=== PATIENT | male | born 1955 | race Caucasian/White ===

== ENCOUNTER 2020-06-15 10:25 | Day surgery (SDC) | payer OTHER ==
[~2020-06-15] VITALS: Ht 165.1 cm; Wt 79.9 kg
[2020-06-15] MEDS ORDERED: ASPI81CH PO (10:41)
[2020-06-15] MEDS ORDERED: HYDCHL25 PO (10:41)
[2020-06-15] MEDS ORDERED: PRAV20 PO (10:42)
[2020-06-15] MEDS ORDERED: SILD50TA PO (10:42)
[2020-06-15] MEDS ORDERED: LISI20 PO (10:42)
[2020-06-15] MEDS ORDERED: GABA100 PO (10:43)
== END 2020-06-15 11:24 | disposition home or self-care (01) ==
LOC: ORSCSDS 10:25
PROVIDERS: Anesthesiology
PROC: 3E0R33Z Introduction of Anti-inflammatory into Spinal Canal, Percutaneous Approach (ICD-10-PCS; principal; 2020-06-15 16:00)
DX: M54.16 Radiculopathy, lumbar region (principal); I10 Essential (primary) hypertension; Z79.899 Other long term (current) drug therapy; Z87.891 Personal history of nicotine dependence
CPT/HCPCS: J1040

== ENCOUNTER 2023-08-14 11:15 | Emergency (ER) | payer OTHER ==
[~2023-08-14] VITALS: Ht 160 cm; Wt 81.7 kg
[~2023-08-14 11:15] MED LIST: ASPI81CH PO; GABA100 PO; HYDCHL25 PO; LISI20 PO; PRAV20 PO; SILD50TA PO
[2023-08-14 13:06] LABS: BASOPHILS ABSOLUTE AUTO 0.05 K/mm3 (0.00-0.23); BASOPHILS PERCENT AUTO 0 % (0-2); EOSINOPHILS ABSOLUTE AUTO 0.12 K/mm3 (0.00-0.68); EOSINOPHILS PERCENT AUTO 1 % (0-6); Hematocrit 41.4 % (37.0-53.0); Hemoglobin 14.3 g/dL (13.5-17.5); IMMATURE GRAN ABSOLUTE AUTO 0.09 K/mm3 (0.00-0.10); IMMATURE GRAN PERCENT AUTO 1 % (0-1); LYMPHOCYTES ABSOLUTE AUTO 1.29 K/mm3 (0.84-5.20); LYMPHOCYTES PERCENT AUTO 9 % (21-46); MONOCYTES ABSOLUTE AUTO 1.07 K/mm3 (0.16-1.47); MONOCYTES PERCENT AUTO 8 % (4-13); Mean Corpuscular HGB Conc 34.5 g/dL (31.5-36.5); Mean Corpuscular Volume 87 fL (80-100); Mean Platelet Volume 8.7 fL (9.1-12.4); NEUTROPHILS ABSOLUTE AUTO 11.22 K/mm3 (1.96-9.15); NEUTROPHILS PERCENT AUTO 81 % (41-73); Platelet Count 243 K/mm3 (150-400); RDW Standard Deviation 41.4 fL (35.1-46.3); Red Blood Cell Count 4.76 M/mm3 (4.30-5.90); White Blood Cell Count 13.84 K/mm3 (4.00-11.30)
[2023-08-14 13:30] VITALS: BP 162/96
[2023-08-14 13:33] LABS: Magnesium, Blood 2.4 mg/dL (1.6-2.4)
[2023-08-14 13:34] LABS: Albumin, Blood 3.7 g/dL (3.4-5.0); Bilirubin, Total 0.4 mg/dL (0.1-1.0); Bun/Creatinine Ratio 18.1 (12.0-20.0); Calcium, Blood 8.9 mg/dL (8.5-10.1); Creatinine, Blood 0.94 mg/dL (0.60-1.20); Globulin, Blood 3.6 g/dL (2.2-4.0); Potassium, Blood 4.1 mmol/L (3.5-5.5); Total Protein, Blood 7.3 g/dL (6.4-8.2)
== END 2023-08-14 14:01 | disposition home or self-care (01) ==
LOC: ER 11:15
PROVIDERS: Student in an Organized Health Care Education/Training Program
DX: R56.9 Unspecified convulsions (principal); E87.1 Hypo-osmolality and hyponatremia; Z87.891 Personal history of nicotine dependence; Z79.82 Long term (current) use of aspirin; Z79.899 Other long term (current) drug therapy
CPT/HCPCS: 80053; 82947; 83735; 85025; 99284-25

== ENCOUNTER 2024-02-24 13:32 | Inpatient (IN) | payer OTHER ==
[~2024-02-24] VITALS: Ht 165.1 cm; Wt 85.0 kg
[2024-02-24] VITALS (12 sets, daily range): BP systolic 101–140; BP diastolic 69–93
[~2024-02-24 13:32] MED LIST changes: -Acetaminophen650 M1 PO; -EZETIMIBE10 M6 PO; -LEVETIRACETAM50014 PO; -METO25ER PO; -NITR.4SL SL; -ROSUVASTATIN CA40 MG PO; -TICA90TA PO
[2024-02-24] MEDS ORDERED: FentaNYL Citrate 50 MCG/ML 2 ML Injection ONE (13:37)
[2024-02-24] MEDS ORDERED: Midazolam HCl 1MG / ML 2ML Vial ONE (13:38)
[2024-02-24] MEDS ORDERED: NS 1,000 ML IV ONE ×2 (13:38→15:19)
[2024-02-24] MEDS ORDERED: Ticagrelor 90 MG TABLET PO ONE ×2 (13:40→15:30)
[2024-02-24] MEDS ORDERED: Heparin Sodium 5000 Units/ML 1ML MDV IV ONE (13:40)
[2024-02-24] MEDS ORDERED: Phenylephrine HCl 100 MCG/ML-NS 10MLSYR (1MG/10ML) ONE (13:43)
[2024-02-24] MEDS ORDERED: Atropine Sulfate 0.1 MG/ML 10ML SYR ONE (13:43)
[2024-02-24] MEDS ORDERED: Ticagrelor 90 MG TABLET ONE (13:48)
[2024-02-24 13:50] LABS: Calcium, Ionized (POC) 1.13 mmol/L (1.10-1.46); Chloride (POC) 105 mmol/L (98-108); Creatinine (POC) 1.1 mg/dL (0.8-1.3); Glucose (ISTAT POC) 140 mg/dL (70-99); Hemoglobin (POC) 15.3 g/dL (13.5-17.5); Potassium (POC) 4.4 mmol/L (3.5-5.5); Sodium (POC) 136 mmol/L (135-148); Total CO2 (POC) 21 mmol/L (21-32)
[2024-02-24] MEDS ORDERED: LEVETIRACETAM50014 PO (13:57)
[2024-02-24 13:58] LABS: BASOPHILS ABSOLUTE AUTO 0.07 K/mm3 (0.00-0.23); BASOPHILS PERCENT AUTO 1 % (0-2); EOSINOPHILS ABSOLUTE AUTO 0.07 K/mm3 (0.00-0.68); EOSINOPHILS PERCENT AUTO 1 % (0-6); Hematocrit 43.7 % (37.0-53.0); IMMATURE GRAN ABSOLUTE AUTO 0.09 K/mm3 (0.00-0.10); IMMATURE GRAN PERCENT AUTO 1 % (0-1); LYMPHOCYTES ABSOLUTE AUTO 1.53 K/mm3 (0.84-5.20); LYMPHOCYTES PERCENT AUTO 13 % (21-46); MONOCYTES ABSOLUTE AUTO 0.81 K/mm3 (0.16-1.47); MONOCYTES PERCENT AUTO 7 % (4-13); Mean Corpuscular HGB 29.9 pg (26.0-34.0); Mean Corpuscular HGB Conc 34.3 g/dL (31.5-36.5); Mean Corpuscular Volume 87 fL (80-100); Mean Platelet Volume 8.3 fL (9.1-12.4); NEUTROPHILS ABSOLUTE AUTO 9.62 K/mm3 (1.96-9.15); NEUTROPHILS PERCENT AUTO 79 % (41-73); Platelet Count 271 K/mm3 (150-400); RDW Coefficient Variation 12.7 % (11.7-14.2); RDW Standard Deviation 40.9 fL (35.1-46.3); Red Blood Cell Count 5.01 M/mm3 (4.30-5.90); White Blood Cell Count 12.19 K/mm3 (4.00-11.30)
[2024-02-24] MEDS ORDERED: EZETIMIBE10 M6 PO (13:58)
[2024-02-24] MEDS ORDERED: ROSUVASTATIN CA40 MG PO (13:59)
[2024-02-24 14:10] LABS: International Normalized Ratio 0.96; Prothrombin Time Results 10.3 Sec (9.7-11.5)
[2024-02-24 14:13] LABS: Albumin, Blood 4.4 g/dL (3.4-5.0); Albumin/Globulin Ratio 1.1 (0.8-1.8); Bilirubin, Total 0.3 mg/dL (0.1-1.0); Calcium, Blood 9.2 mg/dL (8.5-10.1); Potassium, Blood 4.5 mmol/L (3.5-5.5); Total Protein, Blood 8.4 g/dL (6.4-8.2)
[2024-02-24] MEDS ORDERED: Heparin Sodium,Porcine 5,000 UNIT/0.5 ML SDV SC ONE (14:46)
[2024-02-24] MEDS ORDERED: Acetaminophen 325 MG TABLET PO PRN ×2 (14:55→15:30)
[2024-02-24] MEDS ORDERED: Morphine Sulfate 4 MG/1 ML Injection IV PRN (15:00)
[2024-02-24] MEDS ORDERED: NS 250 ML IV ONE (15:19)
[2024-02-24] MEDS ORDERED: Heparin Sodium 1000 Units/ML 10ML MDV ONE (15:19)
[2024-02-24] MEDS ORDERED: NiCARdipine HCL 1,000 MCG/5 ML SYR ONE (15:20)
[2024-02-24] MEDS ORDERED: Nitroglycerin 2 MG/20 ML BTL ONE (15:20)
[2024-02-24] MEDS ORDERED: Acetaminophen/Codeine 300-30 mg PO PRN (15:25)
[2024-02-24] MEDS ORDERED: HydrALAZINE HCl 20 MG / ML 1ML Vial IV PRN ×2 (15:30)
[2024-02-24] MEDS ORDERED: NS 1,000 ML IV SCH (15:30)
[2024-02-24] MEDS ORDERED: Nitroglycerin 0.4 MG SUBL SL PRN (15:30)
[2024-02-24] MEDS ORDERED: Zolpidem Tartrate 5 MG Tab PO PRN (15:35)
[2024-02-24] MEDS ORDERED: Ondansetron HCl 2 MG / ML 2ML Vial IV PRN (15:35)
[2024-02-24] MEDS ORDERED: Gabapentin 100 MG Cap PO PRN (17:10)
--- NOTE | 2024-02-24 17:43 | NUR ---
PT ARRIVAL/SHIFT SUMMARY..... PT ARRIVED TO THE UNIT AT 1530. PT IS A&Ox4 S/P STENT TO THE RCA. PT DENIES ANY CHEST PAIN/PRESSURE N/V OR SOB AT THIS TIME. PT'S VS STABLE. TR BAND TO THE RIGHT WRIST HAS 11MLS OF AIR, NO SWELLING, BLEEDING OR HEMATOMA NOTED TO THE RIGHT WRIST/ARM. ARM BOARD IN IN PLACE TO THE RIGHT ARM. PT'S AT THE BEDSIDE, BOTH PT AND HIS UPDATED ON PT'S CONDITION AND PLAN OF CARE. AT 1730 2MLS OF AIR WAS REMOVED FROM THE TR BAND, THE SITE STARTED BLEEDING, THE AIR WAS RE-INSTILLED AND THE BLEEDING STOPPED. WILL CONTINUE TO MONITOR UNTIL REPORT IS GIVEN TO ONCOMING RN.
--- NOTE | 2024-02-24 19:00 | NUR ---
ASSUMPTION OF CARE PT LYING IN BED, AWAKE, ALERT AND ORIENTED TO ALL. HR NSR 78 AND BP STABLE 120/78. PT DENIES CHEST PAIN, SHORTNESS OF BREATH. PT ADMITS TO DECREASED APPETITE BUT NO NAUSEA. PUNCTURE SITE IN RIGHT WRIST IS CLEAN AND DRY WITH NO SIGN OF HEMATOMA. RIGHT HAND SHOWS INTACT PERFUSION AND SENSATION. NS INFUSING AT 100ML/HR INTO RIGHT AC.
[2024-02-24] MEDS ORDERED: LevETIRAcetam 500 MG Tab PO SCH (21:00)
[2024-02-24] MEDS ORDERED: Rosuvastatin Calcium 10 MG Tab PO SCH (21:00)
[2024-02-24] MEDS ORDERED: Gabapentin 100 MG Cap PO SCH (21:00)
[2024-02-24] MEDS ORDERED: Ticagrelor 90 MG TABLET PO SCH (21:00)
[2024-02-24] MEDS ORDERED: Atorvastatin 40 MG Tab PO SCH (21:00)
--- NOTE | 2024-02-24 23:39 | NUR ---
UPDATE PT TR BAND REMOVED AT 2315. PUNCTURE SITE IS CLEAN AND DRY WITH SMALL DRIED BLOOD ON THE PERIPHERY AND NO SIGN OF HEMATOMA OR DECREASED NEUROVASCULAR INTEGRITY. INITIAL AIR REMOVAL WAS 1730 BY DAY SHIFT NURSE BUT AIR WAS RE INSERTED FOLLOWING BLEEDING. 1ML WAS REMOVED AT 2014 AND THEN IN INCREMENTS OF 1 OR 2ML EVERY 10 TO 20 MIN, FOLLOWING ACCEPTABLE SITE ASSESSMENTS. TEGADERM FRAME BANDAGE WAS PLACED AFTER THE AREA WAS CLEANED.
[2024-02-25] VITALS (13 sets, daily range): BP systolic 122–168; BP diastolic 64–90
[2024-02-25 04:51] LABS: BASOPHILS ABSOLUTE AUTO 0.05 K/mm3 (0.00-0.23); BASOPHILS PERCENT AUTO 1 % (0-2); EOSINOPHILS ABSOLUTE AUTO 0.16 K/mm3 (0.00-0.68); EOSINOPHILS PERCENT AUTO 2 % (0-6); Hemoglobin 13.3 g/dL (13.5-17.5); IMMATURE GRAN ABSOLUTE AUTO 0.05 K/mm3 (0.00-0.10); IMMATURE GRAN PERCENT AUTO 1 % (0-1); LYMPHOCYTES ABSOLUTE AUTO 1.62 K/mm3 (0.84-5.20); LYMPHOCYTES PERCENT AUTO 15 % (21-46); MONOCYTES ABSOLUTE AUTO 1.09 K/mm3 (0.16-1.47); MONOCYTES PERCENT AUTO 10 % (4-13); Mean Corpuscular HGB 29.8 pg (26.0-34.0); Mean Corpuscular HGB Conc 34.1 g/dL (31.5-36.5); Mean Corpuscular Volume 87 fL (80-100); Mean Platelet Volume 8.8 fL (9.1-12.4); NEUTROPHILS ABSOLUTE AUTO 7.95 K/mm3 (1.96-9.15); NEUTROPHILS PERCENT AUTO 73 % (41-73); Platelet Count 229 K/mm3 (150-400); RDW Standard Deviation 41.3 fL (35.1-46.3); Red Blood Cell Count 4.47 M/mm3 (4.30-5.90); White Blood Cell Count 10.92 K/mm3 (4.00-11.30)
[2024-02-25 05:20] LABS: Alanine Aminotransfer (ALT/SGP 55 U/L (12-78); Albumin, Blood 3.4 g/dL (3.4-5.0); Alk Phos 59 U/L (50-136); Anion Gap 13 mmol/L (3-11); Aspartate Aminotrans (AST/SGOT 246 U/L (12-37); Bilirubin, Total 0.4 mg/dL (0.1-1.0); Blood Urea Nitrogen 13 mg/dL (8-24); Bun/Creatinine Ratio 14.1 (12.0-20.0); CHOL/HDL RATIO 2.3; CO2, Blood 20 mmol/L (21-32); Calcium, Blood 8.3 mg/dL (8.5-10.1); Chloride, Blood 110 mmol/L (98-108); Cholesterol 108 mg/dL (50-200); Creatinine, Blood 0.92 mg/dL (0.60-1.20); Globulin, Blood 3.4 g/dL (2.2-4.0); Glomerular Filtration Rate 90 (60-); Glucose, Blood 118 mg/dL (70-99); HDL Cholesterol 46 mg/dL (>39); LDL/HDL RATIO 0.8; Low Density Lipoprotein Chol 36 mg/dL (0-110); Potassium, Blood 3.9 mmol/L (3.5-5.5); Sodium, Blood 139 mmol/L (136-145); Total Protein, Blood 6.8 g/dL (6.4-8.2); Triglycerides 131 mg/dL (30-160); Very Low Density Lipoprot Chol 26 mg/dL (6-32)
--- NOTE | 2024-02-25 06:19 | NUR ---
SHIFT SUMMARY PT LYING IN BED SLEEPING. PT AWAKES TO VOICE AND IS ORIENTED X 4. HR IN 60S/70S, 1ST DEGREE AV BLOCK. BP STABLE 138/90. PT DENIES CHEST PAIN AND SOB. RESPIRATION REGULAR AND WITHOUT EXTRA EFFORT. PT DENIES NAUSEA. RIGHT AC IV SALINE LOCKED. RADIAL ACCESS SITE CLEAN AND DRY W/O EVIDENCE OF HEMATOMA OR NEUROVASCULAR COMPROMISE.
--- NOTE | 2024-02-25 07:43 | NUR ---
BSR AT 0700, PT'S WRIST CHECKED, GOOD PULSES, NO LEAKING. DENIES ANY COMPLAINTS TELLING JOKES.
[2024-02-25] MEDS ORDERED: Aspirin 81 MG Chew PO SCH (09:00)
[2024-02-25] MEDS ORDERED: Metoprolol Succinate 25 MG TABCR PO SCH (09:00)
[2024-02-25] MEDS ORDERED: Lisinopril 20 MG Tab PO SCH (09:00)
[2024-02-25] MEDS ORDERED: Lisinopril 10 MG Tab PO SCH (09:00)
[2024-02-25] MEDS ORDERED: Aspirin 81 MG TabEC PO SCH (09:00)
[2024-02-25] MEDS ORDERED: Ezetimibe 10 MG Tab PO SCH ×2 (09:00)
[2024-02-25] MEDS ORDERED: Acetaminophen650 M1 PO (11:49)
[2024-02-25] MEDS ORDERED: METO25ER PO (11:49)
[2024-02-25] MEDS ORDERED: TICA90TA PO (11:51)
[2024-02-25] MEDS ORDERED: NITR.4SL SL (11:52)
--- NOTE | 2024-02-25 12:58 | NUR ---
JALEN AND HIS WERE GIVEN DISCHARGE INSTRUCTIONS, QUESTIONS ASKED AND ANSWERED. MEDICATIONS TO [facility] WITH COUPON FOR ONE MONTH OF [place]. FOLLOW UP WITH CARDIOLOGY HERE ON THE AND HIS OWN PCP ON THE . PT UP AND AMBULATES ALL THE WAY TO THE CAR WITH NO CHEST PAIN OR TIGHTNESS, NO FEELING OF DISCOMFORT. AT HIS SIDE.
== END 2024-02-25 12:46 | disposition home or self-care (01) | DRG 322 ==
LOC: ER 13:32 → ICUE 13:48
PROVIDERS: Emergency Medicine; ADMIT Internal Medicine
PROC: 027035Z Dilation of Coronary Artery, One Artery with Two Drug-eluting Intraluminal Devices, Percutaneous Approach (ICD-10-PCS; principal; 2024-02-24)
PROC: B2111ZZ Fluoroscopy of Multiple Coronary Arteries using Low Osmolar Contrast (ICD-10-PCS; 2024-02-24)
PROC: 4A023N7 Measurement of Cardiac Sampling and Pressure, Left Heart, Percutaneous Approach (ICD-10-PCS; 2024-02-24)
DX: I21.19 ST elevation (STEMI) myocardial infarction involving other coronary artery of inferior wall (principal); G40.909 Epilepsy, unspecified, not intractable, without status epilepticus; I10 Essential (primary) hypertension; I25.10 Atherosclerotic heart disease of native coronary artery without angina pectoris; E78.5 Hyperlipidemia, unspecified; I73.9 Peripheral vascular disease, unspecified; Z66 Do not resuscitate; G89.4 Chronic pain syndrome; Z87.891 Personal history of nicotine dependence; Z79.82 Long term (current) use of aspirin; Z79.899 Other long term (current) drug therapy; Z79.811 Long term (current) use of aromatase inhibitors; Z86.718 Personal history of other venous thrombosis and embolism; Z85.46 Personal history of malignant neoplasm of prostate; Z92.3 Personal history of irradiation; Z98.890 Other specified postprocedural states
CPT/HCPCS: 36415; 71045; 76937; 80047; 80053; 80061; 84484; 85014; 85025; 85347; 85610; 85730; 92953; 93005; 93010; 93306; 93454; 96374-59; 99152; 99153; 99285-25; A9270; C1725; C1769; C1874; C1887; C1894; C9606; J0461; J1644; J2250; J2371; J3010; J7030; J7050; Q9967

== ENCOUNTER → 2024-02-24 | Outpatient (CLI) | payer OTHER ==
[~2024-02-24] MED LIST changes: +Acetaminophen650 M1 PO; +EZETIMIBE10 M6 PO; +LEVETIRACETAM50014 PO; +METO25ER PO; +NITR.4SL SL; +ROSUVASTATIN CA40 MG PO; +TICA90TA PO
[2024-02-24 13:26] LABS: BASOPHILS ABSOLUTE AUTO 0.07 K/mm3 (0.00-0.23); BASOPHILS PERCENT AUTO 1 % (0-2); EOSINOPHILS ABSOLUTE AUTO 0.11 K/mm3 (0.00-0.68); EOSINOPHILS PERCENT AUTO 1 % (0-6); Hematocrit 42.2 % (37.0-53.0); Hemoglobin 14.4 g/dL (13.5-17.5); IMMATURE GRAN PERCENT AUTO 1 % (0-1); LYMPHOCYTES PERCENT AUTO 14 % (21-46); MONOCYTES ABSOLUTE AUTO 0.87 K/mm3 (0.16-1.47); MONOCYTES PERCENT AUTO 8 % (4-13); Mean Corpuscular HGB 29.9 pg (26.0-34.0); Mean Corpuscular HGB Conc 34.1 g/dL (31.5-36.5); Mean Corpuscular Volume 88 fL (80-100); Mean Platelet Volume 8.6 fL (9.1-12.4); NEUTROPHILS ABSOLUTE AUTO 8.92 K/mm3 (1.96-9.15); NEUTROPHILS PERCENT AUTO 76 % (41-73); Platelet Count 257 K/mm3 (150-400); RDW Coefficient Variation 12.9 % (11.7-14.2); RDW Standard Deviation 40.8 fL (35.1-46.3); Red Blood Cell Count 4.82 M/mm3 (4.30-5.90); White Blood Cell Count 11.67 K/mm3 (4.00-11.30)
[2024-02-24 13:45] LABS: Albumin, Blood 4.1 g/dL (3.4-5.0); Bilirubin, Total 0.3 mg/dL (0.1-1.0); Bun/Creatinine Ratio 12.3 (12.0-20.0); Calcium, Blood 9.2 mg/dL (8.5-10.1); Creatinine, Blood 1.22 mg/dL (0.60-1.20); Globulin, Blood 4.1 g/dL (2.2-4.0); Potassium, Blood 4.6 mmol/L (3.5-5.5); Total Protein, Blood 8.2 g/dL (6.4-8.2)
== END | disposition home or self-care (01) ==
LOC: LAB SHORT 13:21 → LAB 13:21
PROVIDERS: Chiropractor
DX: R07.89 Other chest pain (principal)
CPT/HCPCS: 80053; 84484; 85025

== ENCOUNTER 2025-05-19 06:05 | Inpatient (IN) | payer OTHER ==
[2025-05-19] VITALS (15 sets, daily range): BP systolic 97–150; BP diastolic 50–81
[~2025-05-19] VITALS: Ht 160 cm; Wt 88.9 kg
[~2025-05-19 06:05] MED LIST changes: +Acetaminophen650 M1 PO; +EFFIENT10 MG PO; +EZETIMIBE10 M6 PO; -GABA100 PO; +GABA300 PO; +LEVETIRACETAM50014 PO; +METO25ER PO; +NITR.4SL SL; +ROSUVASTATIN CA40 MG PO; +TICA90TA PO
[2025-05-19] MEDS ORDERED: Tranexamic Acid 100 ML IV SCH (06:20)
[2025-05-19] MEDS ORDERED: CeFAZolin Sodium 2,000 MG in NS 100 ML IV SCH ×2 (06:20→16:00)
[2025-05-19] MEDS ORDERED: Chlorhexidine Mouth Care 15 ML UDC MT SCH (06:20)
--- NOTE | 2025-05-19 07:10 | NUR ---
Ambulatory in Day Surgery. History, Chart, Medications and Allergies reviewed before start of procedure. Lungs clear T/O to Auscultation. Patient confirms NPO status and agrees with scheduled surgery. Pre-Op teaching done. Pt verbalizes understanding. Patient reports completing Chlorhexadine shower X2 prior to admission to hospital.
[2025-05-19] MEDS ORDERED: FentaNYL Citrate 50 MCG/ML 2 ML Injection ONE (07:19)
[2025-05-19] MEDS ORDERED: Dexamethasone Sod Phos 10 MG/ML 1ML VIAL ONE (07:19)
[2025-05-19] MEDS ORDERED: Bupivacaine HCl 0.25% 30 ML Injection ONE (07:19)
[2025-05-19] MEDS ORDERED: Midazolam HCl 1MG / ML 2ML Vial ONE (07:19)
[2025-05-19] MEDS ORDERED: Dexmedetomidine HCL 200 MCG / 2 ML ONE (07:21)
[2025-05-19] MEDS ORDERED: Rocuronium Bromide 10 MG/ML 5ML Injection IV ONE (07:41)
--- NOTE | 2025-05-19 07:58 | NUR ---
0728: INTRASCALINE BLOCK TIME OUT COMPLETED AT BEDSIDE WITH DR. BROWN. PT PLACED ON 2L O2 WITH NC, SPO2, BP MONITORING. 0733: BLOCK STARTED, PT TOLERATING WELL. 0736: BLOCK COMPLETED, DEMETRI VERY WELL. PT TX TO OR VIA [facility]
[2025-05-19] MEDS ORDERED: Phenylephrine HCl 100 MCG/ML-NS 10MLSYR (1MG/10ML) ONE (07:59)
[2025-05-19] MEDS ORDERED: ePHEDrine Sulfate 50 MG/ML 1ML Injection ONE ×2 (07:59→08:19)
[2025-05-19] MEDS ORDERED: Sugammadex Sodium 200 MG/2ML SDV (100 MG/ML) ONE (09:43)
[2025-05-19] MEDS ORDERED: Ondansetron HCl 2 MG / ML 2ML Vial ONE (09:43)
[2025-05-19] MEDS ORDERED: Metoclopramide HCl 5MG / ML 2ML Vial IV PRN (10:05)
[2025-05-19] MEDS ORDERED: HYDROmorphone HCl/Pf 1MG SYR IV PRN ×3 (10:05→10:25)
[2025-05-19] MEDS ORDERED: Magnesium Hydroxide Conc 10 ML UDC PO PRN (10:10)
[2025-05-19] MEDS ORDERED: Ondansetron HCl 2 MG / ML 2ML Vial IV PRN ×2 (10:10→10:20)
[2025-05-19] MEDS ORDERED: Prochlorperazine Edisylate 10 mg Vial IV PRN (10:15)
[2025-05-19] MEDS ORDERED: FentaNYL Citrate 50 MCG/ML 2 ML Injection IV PRN ×2 (10:20→10:25)
[2025-05-19] MEDS ORDERED: Albuterol 2.5 MG/3 ML VIAL INH PRN (10:20)
[2025-05-19] MEDS ORDERED: FLU VACC TS2025(65UP)/MF59C/PF 45 MCG/0.5 ML SYRINGE IM SCH (10:35)
--- NOTE | 2025-05-19 10:51 | NUR ---
ARRIVAL TO UNIT PT APPEARS TO BE A/OX4. REFRESHMENTS PROVIDED. VISITOR IN ROOM. PERSONAL BELONGINGS IN ROOM. PT ABLE TO WIGGLE FINGERS, REPORTS SOME SENSATION BUT STILL NUMB. CALL LIGHT IN REACH.
[2025-05-19] MEDS ORDERED: Ketorolac Tromethamine 15mg Vial IV SCH (12:00)
[2025-05-19] MEDS ORDERED: ASPI81CH PO (14:56)
--- NOTE | 2025-05-19 15:27 | NUR ---
DC INSTRUCT REVIEWED. STATED UNDERSTANDING. PRINTED INSTRUCT DISPENSED. DC'D TO POV VIA W/C.
== END 2025-05-19 15:30 | disposition home or self-care (01) | DRG 483 ==
LOC: ORSCMMR 06:05 → ORD 07:30 → SURS 10:29 → ORSCMMR 10:30 → SURS 10:52
PROVIDERS: ADMIT Orthopaedic Surgery
PROC: 0RRK00Z Replacement of Left Shoulder Joint with Reverse Ball and Socket Synthetic Substitute, Open Approach (ICD-10-PCS; principal; 2025-05-19 07:30)
DX: M19.012 Primary osteoarthritis, left shoulder (principal); M25.712 Osteophyte, left shoulder; I10 Essential (primary) hypertension; E78.5 Hyperlipidemia, unspecified; I25.10 Atherosclerotic heart disease of native coronary artery without angina pectoris; I25.2 Old myocardial infarction; Z86.73 Personal history of transient ischemic attack (TIA), and cerebral infarction without residual deficits
CPT/HCPCS: 73030; 97161; 97165; 97530; 97535; A9270; J0690; J1100; J1885; J2250; J2371; J2405; J2704; J3010; J7120